=== PATIENT | female | born 1995 | race Hispanic/Latino ===

== ENCOUNTER 2017-09-14 03:12 | Emergency (ER) | payer OTHER ==
[~2017-09-14] VITALS: Ht 172.7 cm; Wt 94.0 kg
[~2017-09-14 03:12] MED LIST: BACTRIM,SEPT1 TABLET PO; CHROMAGEN,1 CAPSULE PO; CLINDAMYCIN HC150 MG PO; DEPO-PROVER150 MG/ML IM; FLEXERIL10 MG PO; FLINTSTONES1 EACH PO; FLONASE16 G1 BOTH NARES; HYDROCODON-ACE1 EAC7 PO; IBUPROFEN800 MG PO; KEFLEX500 MG PO; MOTRIN800 MG PO; MUCUS RELIEF600 M1 PO; NAPROSYN500 MG PO; NO HOME MEDS; NORCO 5/3251 TABLET PO; ROBITUSSIN NIG118 ML PO; SKELAXIN400 M1 PO; SUDAFED 12-HOU120 MG PO; TESSALON PERLE100 MG PO; TYLENOL WITH C1 EACH PO; ULTRAM50 MG PO; VICODIN 5-3001 EACH PO; VICODIN,LORT1 TABLET PO; ZITHROMAX Z-PA250 MG PO
[2017-09-14 04:03] LABS: HEMATOCRIT 37.7 % (36.0-46.0); MCH 23.5 PG (29.0-34.0); MCHC 33.7 G/DL (30.0-36.0); MCV 69.7 FL (83-99); MEAN PLAT.VOLUME 10.9 uM^3 (9.5-12.4); PLATELET COUNT 257 K/uL (156-360); RBC DIS.WIDTH-CV 16.8 % (11.8-14.6); RBC DIS.WIDTH-SD 41.7 % (39-53); RED BLOOD COUNT 5.41 M/uL (3.80-5.20); WHITE BLOOD COUNT 9.9 K/uL (4.1-10.2)
[2017-09-14 04:04] LABS: CHLORIDE 106 mEq/L (99-109); SODIUM 135 mEq/L (136-147)
[2017-09-14 04:07] LABS: GLUCOSE 121 mg/dL (70-99)
[2017-09-14 04:08] LABS: ANION GAP 9 MEQ/L (2-14)
[2017-09-14 04:09] LABS: TOTAL BILIRUBIN 0.7 mg/dL (0.0-1.0)
[2017-09-14 04:10] LABS: ALKALINE PHOSPHATASE 72 IU/L (3-129); GFR ESTIMATE (CALCULATED) > 59 mL/min/
[2017-09-14 04:11] LABS: UREA NITROGEN (BUN) 12 mg/dL (9-23)
[2017-09-14 04:19] LABS: QUANTITATIVE HCG 556.8 MIU/ML
[2017-09-14 04:24] LABS: ADD MIUA? YES; BILIRUBIN NEGATIVE; BLOOD SMALL; COLOR YELLOW ((YELLOW)); GLUCOSE (STRIP) NEGATIVE; KETONES 20; LEUKOCYTES TRACE; NITRITE NEGATIVE; PROTEIN (STRIP) NEGATIVE; UROBILINOGEN 0.2 MG/DL (0.2-1.0)
[2017-09-14 04:28] LABS: BACTERIA RARE /HPF; EPITHELIAL CELLS RARE /HPF; HYALINE CASTS 0-5 /LPF; MUCUS 2+ /LPF; RED BLOOD CELLS 0-5 /HPF (0-5); UCUL ADDED? YES
[2017-09-14] MEDS ORDERED: ZOFRAN4 MG PO (05:25)
[2017-09-14 06:03] VITALS: BP 118/81
== END 2017-09-14 06:08 | disposition home or self-care (01) ==
LOC: EME 03:12
DX: O26.891 Other specified pregnancy related conditions, first trimester (principal); R10.30 Lower abdominal pain, unspecified; O21.9 Vomiting of pregnancy, unspecified; Z3A.00 Weeks of gestation of pregnancy not specified
CPT/HCPCS: 80053; 81003; 84702; 85027; 87086; 99281; 99284

== ENCOUNTER 2017-09-24 22:40 | Emergency (ER) | payer OTHER ==
[~2017-09-24] VITALS: Ht 172.7 cm; Wt 94.2 kg
[~2017-09-24 22:40] MED LIST changes: +ZOFRAN4 MG PO
[2017-09-24 22:52] VITALS: BP 140/81
[2017-09-24 23:23] LABS: CHLORIDE 102 mEq/L (99-109); HEMOGLOBIN 12.1 G/DL (11.9-15.5); MCH 23.8 PG (29.0-34.0); MCHC 33.6 G/DL (30.0-36.0); MCV 70.9 FL (83-99); PLATELET COUNT 253 K/uL (156-360); POTASSIUM 3.8 mEq/L (3.7-5.4); RBC DIS.WIDTH-CV 16.3 % (11.8-14.6); RBC DIS.WIDTH-SD 41.8 % (39-53); RED BLOOD COUNT 5.08 M/uL (3.80-5.20); SODIUM 133 mEq/L (136-147)
[2017-09-24 23:24] LABS: GLUCOSE 114 mg/dL (70-99)
[2017-09-24 23:28] LABS: CREATININE 0.7 mg/dL (0.6-1.3); GFR ESTIMATE (CALCULATED) > 59 mL/min/
[2017-09-24 23:29] LABS: UREA NITROGEN (BUN) 11 mg/dL (9-23)
[2017-09-24 23:33] LABS: APPEARANCE CLEAR ((CLEAR)); BILIRUBIN NEGATIVE; BLOOD NEGATIVE; COLOR YELLOW ((YELLOW)); GLUCOSE (STRIP) NEGATIVE; KETONES NEGATIVE; LEUKOCYTES MODERATE; NITRITE NEGATIVE; PROTEIN (STRIP) NEGATIVE; SPECIFIC GRAVITY 1.016 (1.000-1.030); UROBILINOGEN 0.2 MG/DL (0.2-1.0)
[2017-09-24 23:35] LABS: BACTERIA NONE SEEN /HPF; EPITHELIAL CELLS 1+ /HPF; MUCUS NONE SEEN /LPF; RED BLOOD CELLS 0-5 /HPF (0-5); UCUL ADDED? NO; WHITE BLOOD CELLS 0-5 /HPF (0-5)
[2017-09-24 23:57] LABS: QUANTITATIVE HCG 20888.3 MIU/ML
[2017-09-25 00:34] LABS: ALBUMIN 4.2 g/dL (3.2-4.8)
[2017-09-25 00:37] LABS: TOTAL PROTEIN 7.6 g/dL (6.4-8.3)
[2017-09-25 00:38] LABS: TOTAL BILIRUBIN 0.3 mg/dL (0.0-1.0)
[2017-09-25 00:39] LABS: ALKALINE PHOSPHATASE 67 IU/L (3-129)
[2017-09-25 00:42] LABS: AST (GOT) 15 IU/L (2-34); DIRECT BILIRUBIN 0.1 mg/dL (0.0-0.3)
[2017-09-25 00:43] LABS: ALT (GPT) 12 IU/L (3-49); LIPASE 26 U/L (1.0-51.0)
== END 2017-09-25 01:34 | disposition home or self-care (01) ==
LOC: EME 22:40
PROVIDERS: Physician Assistant
DX: O26.891 Other specified pregnancy related conditions, first trimester (principal); R10.2 Pelvic and perineal pain; R11.0 Nausea; N83.12 Corpus luteum cyst of left ovary; D25.1 Intramural leiomyoma of uterus; Z3A.01 Less than 8 weeks gestation of pregnancy
CPT/HCPCS: 76801; 80048; 80076; 81003; 83690; 84702; 85027; 99281; 99284

== ENCOUNTER 2017-10-19 01:04 | Emergency (ER) | payer OTHER ==
[~2017-10-19] VITALS: Ht 160 cm; Wt 92.5 kg
[2017-10-19 01:46] LABS: APPEARANCE SL.HAZY ((CLEAR)); BILIRUBIN NEGATIVE; BLOOD NEGATIVE; COLOR YELLOW ((YELLOW)); GLUCOSE (STRIP) NEGATIVE; KETONES NEGATIVE; LEUKOCYTES LARGE; NITRITE NEGATIVE; PROTEIN (STRIP) NEGATIVE; SPECIFIC GRAVITY 1.019 (1.000-1.030)
[2017-10-19 01:51] LABS: BACTERIA RARE /HPF; EPITHELIAL CELLS 2+ /HPF; MUCUS TRACE /LPF; RED BLOOD CELLS 0-5 /HPF (0-5); UCUL ADDED? NO; WHITE BLOOD CELLS 0-5 /HPF (0-5)
[2017-10-19 01:55] LABS: HEMATOCRIT 32.8 % (36.0-46.0); HEMOGLOBIN 11.2 G/DL (11.9-15.5); MCH 24.2 PG (29.0-34.0); MCHC 34.1 G/DL (30.0-36.0); PLATELET COUNT 249 K/uL (156-360); RBC DIS.WIDTH-CV 16.9 % (11.8-14.6); RBC DIS.WIDTH-SD 42.9 % (39-53); RED BLOOD COUNT 4.62 M/uL (3.80-5.20)
[2017-10-19 01:58] LABS: ALBUMIN 3.8 g/dL (3.2-4.8); CHLORIDE 107 mEq/L (99-109); POTASSIUM 4.2 mEq/L (3.7-5.4); SODIUM 136 mEq/L (136-147)
[2017-10-19 02:00] LABS: GLUCOSE 101 mg/dL (70-99)
[2017-10-19 02:02] LABS: TOTAL BILIRUBIN 0.3 mg/dL (0.0-1.0)
[2017-10-19 02:04] LABS: CREATININE 0.7 mg/dL (0.6-1.3); GFR ESTIMATE (CALCULATED) > 59 mL/min/
[2017-10-19 02:05] LABS: UREA NITROGEN (BUN) 11 mg/dL (9-23)
[2017-10-19 02:06] LABS: AST (GOT) 14 IU/L (2-34)
[2017-10-19 02:27] LABS: ALKALINE PHOSPHATASE 72 IU/L (3-129)
[2017-10-19 02:30] LABS: ALT (GPT) 9 IU/L (3-49)
[2017-10-19 02:32] LABS: QUANTITATIVE HCG 109428.5 MIU/ML
[2017-10-19 04:10] VITALS: BP 139/84
== END 2017-10-19 04:11 | disposition home or self-care (01) ==
LOC: EME 01:04
DX: O26.891 Other specified pregnancy related conditions, first trimester (principal); R10.30 Lower abdominal pain, unspecified; R11.0 Nausea; Z3A.09 9 weeks gestation of pregnancy
CPT/HCPCS: 76801; 80053; 81003; 84702; 85027; 87086; 99281; 99284

== ENCOUNTER 2017-11-18 23:44 | Emergency (ER) | payer OTHER ==
[~2017-11-18] VITALS: Ht 172.7 cm; Wt 94.8 kg
[2017-11-19 03:30] LABS: APPEARANCE CLOUDY ((CLEAR)); BILIRUBIN NEGATIVE; BLOOD NEGATIVE; COLOR YELLOW ((YELLOW)); GLUCOSE (STRIP) NEGATIVE; KETONES 5; LEUKOCYTES LARGE; NITRITE NEGATIVE; PROTEIN (STRIP) NEGATIVE; UROBILINOGEN 0.2 MG/DL (0.2-1.0)
[2017-11-19 03:46] LABS: EPITHELIAL CELLS 2+ /HPF; RED BLOOD CELLS 0-5 /HPF (0-5); WHITE BLOOD CELLS 20-30 /HPF (0-5)
[2017-11-19 03:47] LABS: BACTERIA 2+ /HPF; MUCUS RARE /LPF; UCUL ADDED? YES
[2017-11-19] MEDS ORDERED: MACROBID100 MG PO (04:00)
[2017-11-19 04:41] VITALS: BP 128/72
== END 2017-11-19 04:42 | disposition home or self-care (01) ==
LOC: EXP 23:44 → EME 23:44 → EXP 11-19 04:42
PROVIDERS: Emergency Medicine
DX: O23.12 Infections of bladder in pregnancy, second trimester (principal); Z3A.16 16 weeks gestation of pregnancy
CPT/HCPCS: 81003; 87086; 99281; 99283

== ENCOUNTER 2017-11-22 15:31 | Emergency (ER) | payer OTHER ==
[~2017-11-22] VITALS: Ht 172.7 cm; Wt 95.4 kg
[~2017-11-22 15:31] MED LIST changes: +MACROBID100 MG PO
[2017-11-22 16:12] LABS: HEMATOCRIT 33.2 % (36.0-46.0); HEMOGLOBIN 11.4 G/DL (11.9-15.5); MCH 24.7 PG (29.0-34.0); MCHC 34.3 G/DL (30.0-36.0); MCV 71.9 FL (83-99); PLATELET COUNT 242 K/uL (156-360); RBC DIS.WIDTH-CV 16.6 % (11.8-14.6); RBC DIS.WIDTH-SD 42.8 % (39-53); RED BLOOD COUNT 4.62 M/uL (3.80-5.20); WHITE BLOOD COUNT 7.4 K/uL (4.1-10.2)
[2017-11-22 16:14] LABS: ALBUMIN 3.8 g/dL (3.2-4.8); CHLORIDE 107 mEq/L (99-109); POTASSIUM 3.9 mEq/L (3.7-5.4); SODIUM 134 mEq/L (136-147)
[2017-11-22 16:17] LABS: GLUCOSE 80 mg/dL (70-99); TOTAL PROTEIN 7.1 g/dL (6.4-8.3)
[2017-11-22 16:19] LABS: TOTAL BILIRUBIN 0.2 mg/dL (0.0-1.0)
[2017-11-22 16:19] LABS: APPEARANCE SL.HAZY ((CLEAR)); BILIRUBIN NEGATIVE; BLOOD SMALL; COLOR YELLOW ((YELLOW)); GLUCOSE (STRIP) NEGATIVE; KETONES NEGATIVE; LEUKOCYTES SMALL; NITRITE NEGATIVE; PROTEIN (STRIP) NEGATIVE; SPECIFIC GRAVITY 1.014 (1.000-1.030); UROBILINOGEN 0.2 MG/DL (0.2-1.0)
[2017-11-22 16:20] LABS: ALKALINE PHOSPHATASE 63 IU/L (3-129); CREATININE 0.6 mg/dL (0.6-1.3); GFR ESTIMATE (CALCULATED) > 59 mL/min/
[2017-11-22 16:21] LABS: UREA NITROGEN (BUN) 9 mg/dL (9-23)
[2017-11-22 16:22] LABS: AST (GOT) 14 IU/L (2-34)
[2017-11-22 16:23] LABS: ALT (GPT) 9 IU/L (3-49)
[2017-11-22 16:28] LABS: BACTERIA RARE /HPF; EPITHELIAL CELLS 2+ /HPF; MUCUS TRACE /LPF; UCUL ADDED? NO; WHITE BLOOD CELLS 0-5 /HPF (0-5)
[2017-11-22 16:46] LABS: QUANTITATIVE HCG 42342.2 MIU/ML
[2017-11-22 21:04] VITALS: BP 114/61
== END 2017-11-22 21:05 | disposition home or self-care (01) ==
LOC: EME 15:31
PROVIDERS: Physician Assistant
DX: O20.9 Hemorrhage in early pregnancy, unspecified (principal); Z3A.14 14 weeks gestation of pregnancy
CPT/HCPCS: 76801; 80053; 81003; 84702; 85027; 86900; 86901; 99281; 99285

== ENCOUNTER 2017-12-06 11:08 | Emergency (ER) | payer OTHER ==
[~2017-12-06] VITALS: Ht 170.2 cm; Wt 95.9 kg
[2017-12-06 11:48] LABS: HEMATOCRIT 32.2 % (36.0-46.0); HEMOGLOBIN 10.9 G/DL (11.9-15.5); MCH 24.3 PG (29.0-34.0); MCHC 33.9 G/DL (30.0-36.0); MCV 71.7 FL (83-99); PLATELET COUNT 224 K/uL (156-360); RBC DIS.WIDTH-CV 16.2 % (11.8-14.6); RBC DIS.WIDTH-SD 41.6 % (39-53); RED BLOOD COUNT 4.49 M/uL (3.80-5.20); WHITE BLOOD COUNT 8.1 K/uL (4.1-10.2)
[2017-12-06 11:56] LABS: CHLORIDE 104 mEq/L (99-109); POTASSIUM 4.2 mEq/L (3.7-5.4); SODIUM 135 mEq/L (136-147)
[2017-12-06 11:57] LABS: GLUCOSE 90 mg/dL (70-99)
[2017-12-06 12:01] LABS: CREATININE 0.6 mg/dL (0.6-1.3); GFR ESTIMATE (CALCULATED) > 59 mL/min/
[2017-12-06 12:02] LABS: UREA NITROGEN (BUN) 10 mg/dL (9-23)
[2017-12-06 12:31] LABS: QUANTITATIVE HCG 25872.2 MIU/ML
[2017-12-06 12:47] LABS: APPEARANCE SL.HAZY ((CLEAR)); BILIRUBIN NEGATIVE; BLOOD NEGATIVE; COLOR YELLOW ((YELLOW)); GLUCOSE (STRIP) NEGATIVE; KETONES NEGATIVE; LEUKOCYTES SMALL; NITRITE NEGATIVE; PROTEIN (STRIP) NEGATIVE; SPECIFIC GRAVITY 1.015 (1.000-1.030); UROBILINOGEN 0.2 MG/DL (0.2-1.0)
[2017-12-06 12:51] LABS: BACTERIA RARE /HPF; CALCIUM OXALATE CRYSTALS 1+ /HPF; EPITHELIAL CELLS 1+ /HPF; MUCUS NONE SEEN /LPF; RED BLOOD CELLS 0-5 /HPF (0-5); UCUL ADDED? NO; WHITE BLOOD CELLS 0-5 /HPF (0-5)
[2017-12-06 13:21] VITALS: BP 126/74
== END 2017-12-06 13:25 | disposition home or self-care (01) ==
LOC: EME 11:08
PROVIDERS: Nurse Practitioner Family; Physician Assistant
DX: O99.89 Other specified diseases and conditions complicating pregnancy, childbirth and the puerperium (principal); M62.838 Other muscle spasm; W10.9XXA Fall (on) (from) unspecified stairs and steps, initial encounter; Z3A.16 16 weeks gestation of pregnancy
CPT/HCPCS: 76805; 80048; 81003; 84702; 85027; 99281; 99284

== ENCOUNTER 2018-01-21 23:50 | Outpatient (CLI) | payer OTHER ==
[~2018-01-21] VITALS: Ht 167.6 cm; Wt 110.0 kg
[2018-01-22 00:19] VITALS: BP 114/67
[2018-01-22] MEDS ORDERED: FLINTSTONES GU1 EACH PO (00:36)
[2018-01-22 01:49] LABS: APPEARANCE CLEAR ((CLEAR)); BILIRUBIN NEGATIVE; BLOOD NEGATIVE; COLOR STRAW ((YELLOW)); GLUCOSE (STRIP) NEGATIVE; KETONES NEGATIVE; LEUKOCYTES NEGATIVE; NITRITE NEGATIVE; PROTEIN (STRIP) NEGATIVE; SPECIFIC GRAVITY 1.008 (1.000-1.030); UROBILINOGEN 0.2 MG/DL (0.2-1.0)
== END 2018-01-22 01:40 | disposition home or self-care (01) ==
LOC: LDRP-OP 23:50 → 2WEST 23:51
PROVIDERS: Advanced Practice Midwife
DX: O26.892 Other specified pregnancy related conditions, second trimester (principal); M54.5 Low back pain; R10.10 Upper abdominal pain, unspecified; Z3A.23 23 weeks gestation of pregnancy
CPT/HCPCS: 81003; 87086; G0378

== ENCOUNTER 2018-03-06 18:50 | Emergency (ER) | payer OTHER ==
[~2018-03-06] VITALS: Ht 170.2 cm; Wt 107.5 kg
[~2018-03-06 18:50] MED LIST changes: +FLINTSTONES GU1 EACH PO
[2018-03-06 20:38] VITALS: BP 108/65
== END 2018-03-06 20:39 | disposition home or self-care (01) ==
LOC: EME 18:50
DX: O99.512 Diseases of the respiratory system complicating pregnancy, second trimester (principal); J06.9 Acute upper respiratory infection, unspecified; Z3A.26 26 weeks gestation of pregnancy
CPT/HCPCS: 87651 90; 99281; 99284

== ENCOUNTER 2018-04-16 17:05 | Outpatient (CLI) | payer OTHER ==
[~2018-04-16] VITALS: Ht 172.7 cm; Wt 107.3 kg
[2018-04-16 17:56] LABS: HEMATOCRIT 32.5 % (36.0-46.0); HEMOGLOBIN 10.9 G/DL (11.9-15.5); MCH 23.7 PG (29.0-34.0); MCHC 33.5 G/DL (30.0-36.0); MCV 70.7 FL (83-99); PLATELET COUNT 233 K/uL (156-360); RBC DIS.WIDTH-SD 48.3 % (39-53); WHITE BLOOD COUNT 7.9 K/uL (4.1-10.2)
[2018-04-16 17:58] LABS: ALBUMIN 3.3 g/dL (3.2-4.8)
[2018-04-16 17:59] LABS: CHLORIDE 107 mEq/L (99-109); POTASSIUM 4.1 mEq/L (3.7-5.4); SODIUM 136 mEq/L (136-147)
[2018-04-16 18:01] LABS: GLUCOSE 93 mg/dL (70-99); TOTAL PROTEIN 6.9 g/dL (6.4-8.3)
[2018-04-16 18:03] LABS: TOTAL BILIRUBIN 0.3 mg/dL (0.0-1.0)
[2018-04-16 18:04] LABS: ALKALINE PHOSPHATASE 162 IU/L (3-129)
[2018-04-16 18:05] LABS: CREATININE 0.6 mg/dL (0.6-1.3); GFR ESTIMATE (CALCULATED) > 59 mL/min/
[2018-04-16 18:06] LABS: AST (GOT) 14 IU/L (2-34); UREA NITROGEN (BUN) 5 mg/dL (9-23)
[2018-04-16 18:07] LABS: ALT (GPT) 13 IU/L (3-49)
[2018-04-16 19:18] LABS: APPEARANCE SL.HAZY ((CLEAR)); BILIRUBIN NEGATIVE; BLOOD NEGATIVE; COLOR YELLOW ((YELLOW)); GLUCOSE (STRIP) NEGATIVE; KETONES NEGATIVE; LEUKOCYTES MODERATE; NITRITE NEGATIVE; PROTEIN (STRIP) NEGATIVE; SPECIFIC GRAVITY 1.011 (1.000-1.030); UROBILINOGEN 0.2 MG/DL (0.2-1.0)
[2018-04-16 19:39] LABS: BACTERIA RARE /HPF; EPITHELIAL CELLS 1+ /HPF; MUCUS TRACE /LPF; RED BLOOD CELLS 0-5 /HPF (0-5); UCUL ADDED? YES
[2018-04-16] MEDS ORDERED: IRON 100 PLUS1 EACH PO (20:13)
[2018-04-16 20:30] VITALS: BP 112/64
== END 2018-04-16 20:53 | disposition home or self-care (01) ==
LOC: EME 17:05 → LDRP-OP 17:05 → 2WEST 17:06 → EDSTATUS 19:59 → 2WEST 20:53
PROVIDERS: Nurse Practitioner Family
DX: O26.893 Other specified pregnancy related conditions, third trimester (principal); M54.9 Dorsalgia, unspecified; O99.013 Anemia complicating pregnancy, third trimester; D50.9 Iron deficiency anemia, unspecified; O99.213 Obesity complicating pregnancy, third trimester; Z3A.35 35 weeks gestation of pregnancy
CPT/HCPCS: 59025; 80053; 81003; 85027; 87086; 99281; 99284; G0378

== ENCOUNTER 2018-05-17 17:05 | Outpatient (CLI) | payer OTHER ==
[~2018-05-17 17:05] MED LIST changes: +IRON 100 PLUS1 EACH PO
[2018-05-17 17:20] VITALS: BP 137/89
[2018-05-17 17:26] VITALS: BP 129/83
[2018-05-17 18:46] VITALS: BP 113/70
== END 2018-05-17 19:05 | disposition home or self-care (01) ==
LOC: LDRP-OP → 2WEST 17:06 → LDRP-OP 06-19 02:47
DX: O47.1 False labor at or after 37 completed weeks of gestation (principal); Z3A.39 39 weeks gestation of pregnancy; O99.013 Anemia complicating pregnancy, third trimester; D64.9 Anemia, unspecified; O99.213 Obesity complicating pregnancy, third trimester
CPT/HCPCS: 59025; G0378

== ENCOUNTER 2018-05-19 12:43 | Outpatient (CLI) | payer OTHER ==
[2018-05-19 12:55] VITALS: BP 122/72
== END 2018-05-19 15:15 | disposition home or self-care (01) ==
LOC: LDRP-OP 12:43 → 2WEST 12:44 → LDRP-OP 06-18 19:30
DX: O35.8XX0 Maternal care for other (suspected) fetal abnormality and damage, not applicable or unspecified (principal); Z3A.40 40 weeks gestation of pregnancy
CPT/HCPCS: 59025; G0378